=== PATIENT | female | born 1955 | race Caucasian/White ===

== ENCOUNTER 2016-10-26 10:19 | Emergency (ER) | payer MEDICARE, OTHER ==
[~2016-10-26 10:19] MED LIST: CLON.5 PO; CYMBALTA PO; GABAPENTIN PO; RISPERDAL PO
== END 2016-10-26 11:16 | disposition left against medical advice (07) ==
LOC: EMS 10:21
DX: R42 Dizziness and giddiness (principal); Z53.21 Procedure and treatment not carried out due to patient leaving prior to being seen by health care provider